=== PATIENT | female | born 1985 | race Caucasian/White ===

== ENCOUNTER 2022-03-02 13:17 | Emergency (ER) | payer OTHER ==
[~2022-03-02] VITALS: Ht 152.4 cm; Wt 99.5 kg
[2022-03-02 13:19] VITALS: BP 134/95
[2022-03-02] MEDS ORDERED: [UNRECOGNIZED DRUG - OTHER] (13:25)
[2022-03-02] MEDS ORDERED: BENZ200C70 PO (14:17)
[2022-03-02] MEDS ORDERED: ONDA4TAB6 PO (14:17)
== END 2022-03-02 14:30 | disposition home or self-care (01) ==
LOC: M ED 13:17
DX: U07.1 COVID-19 (principal); Z91.030 Bee allergy status